=== PATIENT | female | born 1970 | race Two or more races ===

== ENCOUNTER 2017-05-20 18:59 | Emergency (ER) | payer SELFPAY ==
[2017-05-20 19:02] VITALS: BP 138/88; PULSE 106; RESP 16; O2SAT 100
--- NOTE | 2017-05-20 20:06 | PD ---
HPI Chief Complaint: Skin Problem Time Seen by Provider: 19:45 Travel History International Travel<30 days: No Contact w/Intl Traveler<30days: No Traveled to known affect area: No History of Present Illness HPI Patient comes in complaining of generalized pruritic rash ongoing for a month. Denies anything making it better or worse. Denies any known new allergen exposures. Denies being around anyone else with similar. Denies any fevers, weight loss, nausea, vomiting, chest pain, shortness of breath, loss or change in bowel or bladder, numbness or tingling anywhere. Patient denies doing anything for this. Patient interpreting for her. Patient was offered hospital interpreting services [employer], but is comfortable with her translating for her. History Social History Alcohol Use: No Tobacco Use: No Review of Systems Except as stated in HPI: all other systems reviewed are Neg Physical Exam Narrative GENERAL: Well-developed, overly nourished, in no acute distress, and non-ill appearing. SKIN: Blanching nonspecific rash noted on bilateral upper and lower extremities as well as trunk. There is no herald patch, signs of scabies, folliculitis, cellulitis, abscess, or other infectious process. HEAD: Atraumatic. Normocephalic. EYES: Pupils equal and round. EOMI. No scleral icterus. No injection or drainage. ENT: No nasal bleeding or discharge. Mucous membranes pink and moist. NECK: Trachea midline. Supple. No nuclear rigidity. CARDIOVASCULAR: Regular rate and rhythm. No murmur appreciated. RESPIRATORY: No accessory muscle use. No respiratory distress. Clear to auscultation. Breath sounds equal bilaterally. MUSCULOSKELETAL: No obvious deformities. No clubbing. No cyanosis. No edema. Full range of motion. NEUROLOGICAL: Awake and alert. No obvious cranial nerve deficits. Motor grossly within normal limits. Normal speech. PSYCHIATRIC: Appropriate mood and affect; insight and judgment normal. Data Data Last Documented VS Vital Signs Date Time Temp Pulse Resp B/P (MAP) Pulse Ox O2 Delivery O2 Flow Rate FiO2 05/20/17 19:02 106 16 138/88 (105) 100 Room Air [facility] Medical Screen Exam Complete: Yes Emergency Medical Condition: No Narrative Course History and physical exam findings are not consistent with an emergent medical condition. She was given the option of receiving additional care, but has declined. Therefore the appropriate counseling recommendations were discussed with the patient and she was instructed to follow-up with her primary care physician as soon as possible for reevaluation. Patient was also informed of community resources from which she can obtain additional care. She is agreeable and verbalizes an understanding of the proposed plan. The patient states she will immediately return to the emergency department if her current complaints do not improve, new symptoms arise, or emergent condition develops. Patient ambulated out of the emergency department without difficulty. Primary Impression: Encounter for medical screening examination Disposition: [facility]-ED USE ONLY Condition: Stable Carlos De Leon May 20, 2017 20:06
== END 2017-05-20 20:12 | disposition left against medical advice (07) ==
LOC: NEPK 18:59
DX: R21 Rash and other nonspecific skin eruption (principal)
CPT/HCPCS: 99281